=== PATIENT | female | born 1975 | race Two or more races ===

== ENCOUNTER → 2018-07-12 | Outpatient (CLI) | payer OTHER | END | disposition home or self-care (01) | LOC: RAD 501 15:30 | DX: I20.8 Other forms of angina pectoris (principal); I25.10 Atherosclerotic heart disease of native coronary artery without angina pectoris ==

== ENCOUNTER → 2019-02-01 | Emergency (ER) | payer OTHER ==
[~2019-02-01] VITALS: Ht 152.4 cm; Wt 58.1 kg
== END | disposition left against medical advice (07) ==
LOC: ER 23:48
DX: Z53.20 Procedure and treatment not carried out because of patient's decision for unspecified reasons (principal)

== ENCOUNTER 2022-01-14 09:14 | Outpatient (CLI) | payer OTHER | END 2022-01-14 09:32 | disposition home or self-care (01) | LOC: MRI 09:14 | DX: R51.9 Headache, unspecified (principal) | CPT/HCPCS: 70553 ==